=== PATIENT | female | born 1990 | race Caucasian/White ===

== ENCOUNTER → 2021-03-26 | Outpatient (CLI) | payer BC | LOC: KOH-I 03-06 08:00 | DX: R19.7 Diarrhea, unspecified (principal) | CPT/HCPCS: 76705 ==

== ENCOUNTER → 2021-04-23 | Outpatient (CLI) | payer BC | LOC: NM 08:54 | DX: R10.11 Right upper quadrant pain (principal) | CPT/HCPCS: 78227; A9537; J2805 ==